=== PATIENT | male | born 1960 | race Caucasian/White ===

== ENCOUNTER 2017-09-01 16:16 | Emergency (ER) | payer OTHER ==
[2017-09-01] MEDS ORDERED: BABY ASPIRIN 81 MG CHEW PO ONE (17:26)
[2017-09-01] MEDS ORDERED: NITRO-BID 2% UD PACKETS TOP ONE (17:26)
[2017-09-01] MEDS ORDERED: PROVENTIL 2.5 MG/3 ML NEB IH ONE ×2 (17:27→17:39)
[2017-09-01 17:37] LABS: BASOPHIL % 0.3 % (0.0-0.4); Basophil (Absolute #) 0.02 (0-0.4); Eosinophil % 3.1 % (0.00-5.0); Eosinophil (Absolute #) 0.21 (0-0.5); Granulocyte Absolute (ANC) 4.06 (1.4-6.9); Granulocytes % 59.3 % (36.0-66.0); Hematocrit 37.9 % (42-50); Hemoglobin 12.5 gm/dl (12.5-18.0); Lymphocyte (Absolute #) 1.71 (1.0-4.6); Mean Cell Volume 90.5 fl (78-100); Mean Corpuscular Hemoglobin 29.8 pg (26-32); Monocyte (Absolute #) 0.84 (0.0-1.3); Monocytes % 12.3 % (0.0-12.0); Platelet Count 374 K/mm3 (150-450); Red Blood Count 4.19 M/mm3 (4.1-5.6); Red Cell Distribution Width 12.4 % (11.5-14.0); White Blood Count 6.8 K/mm3 (4.0-10.5)
[2017-09-01] MEDS ORDERED: BABY ASPIRIN 81 MG CHEW ONE (17:38)
[2017-09-01] MEDS ORDERED: NITRO-BID 2% UD PACKETS ONE (17:38)
[2017-09-01 17:45] LABS: ALKALINE PHOSPHATASE 97 U/L (38-126); ANION GAP 15.8 MEQ/L (5-15); BLOOD UREA NITROGEN 23 mg/dL (9-20); CHLORIDE 103 mmol/L (98-107); Calcium 9.4 mg/dL (8.4-10.2); Carbon Dioxide 24 mmol/L (22-30); Creatinine 1 0.76 mg/dL (0.66-1.25); Glucose 130 mg/dL (74-106); SGOT/AST 33 U/L (17-59); SGPT/ALT 35 U/L (0-50); SODIUM 139 mmol/L (137-145); Total Protein 9.1 g/dL (6.3-8.2)
--- NOTE | 2017-09-01 17:50 | ERPHSYRPT ---
- History of Present Illness Time Seen by Provider: 09/01/17 17:04 Source: patient, family () Patient Subjective Stated Complaint: Pt states "I have been short of breath and I came here to get some bloodwork and an ekg and they called me and told me I had an elevated D-Dimer, whatever that is, and I needed to get to the emergency room." Triage Nursing Assessment: Pt alert and oriented X 3, skin pwd. PT ambulates with and upright steady gait, able to speak in clear full sentences. Pt slightly tachypneic, no coughing. Physician History: CC: chest discomfort and shortness of breath HX: 56 y/o patient of Dr Rodriguez. He has had fatigue, chest discomfort, and shortness of breath for the past 1-2 weeks. Off and on. 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 He has no hx of heart disease. No hx of lung problems. He works at [employer] and quit smoking 8 yeas ago. Started with flu symptoms a few weeks ago. Was seen at [facility] and had sore throat, treated with ashok potion, steroid shots, and amoxil. He has had some lab tests and xrays in the past weeks. He had elevated d-dimer today so was sent to ER. Had EKG today. ALL: None MEds: Tramadol and flexeril Surg: Cataracts, plantar, vasectomy, skin, ortho Timing/Duration: week(s) (1-2) Severity: moderate Allergies/Adverse Reactions: No Known Drug Allergies Allergy (Unverified 09/01/17 16:36) Home Medications: Cyclobenzaprine HCl 10 mg [Cyclobenzaprine 10 MG] 10 mg PO DAILY 09/01/17 [History] Tramadol HCl 50 mg [Ultram 50 mg] 50 mg PO DAILY 09/01/17 [History] Hx Tetanus, Diphtheria Vaccination/Date Given: No Hx Influenza Vaccination/Date Given: No Hx Pneumococcal Vaccination/Date Given: No Immunizations Up to Date: Yes - Review of Systems Constitutional: Fever (?), Chills, Fatigue, Malaise, Weakness Eyes: No Symptoms Ears, Nose, & Throat: No Symptoms Respiratory: Dyspnea, No Cough, No Dyspnea on Exertion ([place]) Cardiac: Chest Pain, No Edema, No Palpitations, No Syncope Abdominal/Gastrointestinal: No Abdominal Pain, No Nausea, No Vomiting, No Diarrhea Genitourinary Symptoms: Dysuria (mild off and on) Musculoskeletal: No Back Pain Skin: No Rash Neurological: No Focal Weakness, No Headache, No Parasthesia All Other Systems: Reviewed and Negative - Past Medical History Pertinent Past Medical History: Yes Neurological History: Migraines ENT History: Cataracts Cardiac History: Other Respiratory History: No Pertinent History Endocrine Medical History: No Pertinent History Musculoskeletal History: Arthritis, Fibromyalgia GI Medical History: No Pertinent History History: No Pertinent History Psycho-Social History: Anxiety, Depression Male Reproductive Disorders: No Pertinent History 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 skin graft right hand. left arm, plate pin and screws. lasik - Social History Smoking Status: Former smoker Exposure to second hand smoke: No Drug Use: none Patient Lives Alone: No - Nursing Vital Signs Nursing Vital Signs: Initial Vital Signs Temperature 97.7 F 09/01/17 16:22 Pulse Rate 99 H 09/01/17 16:22 Respiratory Rate 20 09/01/17 16:22 Blood Pressure 175/92 09/01/17 16:22 O2 Sat by Pulse Oximetry 97 09/01/17 16:22 Pain Scale Pain Intensity 7 - Physical Exam General Appearance: alert, other (pleasant man who appears breathless at times) Eye Exam: PERRL/EOMI Ears, Nose, Throat Exam: normal ENT inspection, moist mucous membranes Neck Exam: normal inspection, non-tender, supple Respiratory Exam: normal breath sounds, No lungs clear Cardiovascular Exam: regular rate/rhythm, No murmur Gastrointestinal/Abdomen Exam: soft, No tenderness, No distention, No mass, No guarding Male Genitalia Exam: normal genitalia Back Exam: normal inspection Extremity Exam: normal range of motion, other (swelling under pleft wrist prior ortho site) Neurologic Exam: alert, oriented x 3, cooperative, 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 tested, sensation nml, No motor deficits Skin Exam: warm, dry, No rash SpO2: 96 Oxygen Delivery: Room Air - Course Nursing assessment & vital signs reviewed: Yes EKG Interpreted by Me: RATE (93), Sinus Rhythm, NORMAL AXIS, NORMAL INTERVALS ( QTc 438), NORMAL QRS, NORMAL ST-T - CT Exams CTA chest CT Interpretation: Tele-radiologist Report (no TAD, no PE) Ordered Tests: Active Orders 24 hr Category Date Time Status 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 Care 09/01/17 17:26 Active EKG-ER Only STAT Care 09/01/17 17:26 Active IV Insertion STAT Care 09/01/17 17:26 Active Pulse Oximetry (ED) STAT Care 09/01/17 17:26 Active CHEST WITH CONTRAST [CT] Stat Exams 09/01/17 17:26 Taken CBC W DIFF Stat Lab 09/01/17 17:26 Completed CMP Stat Lab 09/01/17 17:26 Completed NT PRO BNP Stat Lab 09/01/17 17:26 Completed TROPONIN Q3H Lab 09/01/17 17:30 Completed TROPONIN Q3H Lab 09/01/17 20:30 Ordered TROPONIN Q3H Lab 09/01/17 23:30 Ordered TROPONIN Q3H Lab 09/02/17 02:30 Ordered TROPONIN Q3H Lab 09/02/17 05:30 Ordered Respiratory Nebulizer STAT RT 09/01/17 17:27 Completed Medication Summary Discontinued Medications Generic Name Dose Route Start Last Admin Trade Name Freq PRN Reason Stop Dose Admin Albuterol Sulfate 2.5 mg 09/01/17 17:27 09/01/17 17:41 Proventil 2.5 Mg/3 Ml Neb IH 09/01/17 17:28 2.5 mg STAT ONE Administration Albuterol Sulfate Confirm 09/01/17 17:39 Proventil 2.5 Mg/3 Ml Neb Administered 09/01/17 17:40 Dose 2.5 mg IH .STK-MED ONE Aspirin 162 mg 09/01/17 17:26 09/01/17 17:47 Baby Aspirin 81 Mg Chew PO 09/01/17 17:27 162 mg STAT ONE Administration Aspirin Confirm 09/01/17 17:38 Baby Aspirin 81 Mg Chew Administered 09/01/17 17:39 Dose 162 mg .ROUTE .STK-MED ONE Nitroglycerin 1 gm 09/01/17 17:26 09/01/17 17:47 Nitro-Bid 2% Ud Packets TOP 09/01/17 17:27 1 gm STAT ONE Administration Nitroglycerin Confirm 09/01/17 17:38 Nitro-Bid 2% Ud Packets Administered 09/01/17 17:39 Dose 1 gm .ROUTE .STK-MED ONE Lab/Rad Data: Laboratory Result Diagrams 09/01/17 17:26 09/01/17 17:26 Laboratory Results 09/01/17 09/01/17 09/01/17 Range/Units 17:30 17:26 17:26 WBC 6.8 (4.0-10.5) K/mm3 RBC 4.19 (4.1-5.6) M/mm3 Hgb 12.5 (12.5-18.0) gm/dl Hct 37.9 L (42-50) % MCV 90.5 (78-100) fl MCH 29.8 (26-32) pg MCHC 33.0 (32-36) g/dl RDW 12.4 (11.5-14.0) % Plt Count 374 (150-450) K/mm3 MPV 9.0 (6-9.5) fl Gran % 59.3 (36.0-66.0) % Lymphocytes % 25.0 (24.0-44.0) % Monocytes % 12.3 H (0.0-12.0) % Eosinophils % 3.1 (0.00-5.0) % Basophils % 0.3 (0.0-0.4) % Basophils # 0.02 (0-0.4) Sodium 139 (137-145) mmol/L Potassium 4.0 (3.5-5.1) mmol/L Chloride 103 (98-107) mmol/L Carbon Dioxide 24 (22-30) mmol/L Anion Gap 15.8 H (5-15) MEQ/L BUN 23 H (9-20) mg/dL Creatinine 0.76 (0.66-1.25) mg/dL Estimated GFR > 60 ML/MIN Glucose 130 H (74-106) mg/dL Calcium 9.4 (8.4-10.2) mg/dL Total Bilirubin 0.30 (0.2-1.3) mg/dL AST 33 (17-59) U/L ALT 35 (0-50) U/L Alkaline Phosphatase 97 (38-126) U/L Troponin I < 0.012 (0.000-0.034) ng/mL NT-Pro-B Natriuret Pep 51.5 (0-900) pg/mL Serum Total Protein 9.1 H (6.3-8.2) g/dL Albumin 4.0 (3.5-5.0) g/dL - Progress Progress Note: 09/01/17 19:57 Pain better at this point. HE has NTG paste in place. Was resting. He had mild EKG changes on EKG earlier today. Advised he have rule out [place] observation and cardiology consult. No cardiology available here over weekend. will call [facility] and decide [facility] or [facility]. 09/01/17 20:11 called [facility] and chose [facility]. CAlled [facility] transfer center and spoke to Dr Gee in ED accepts pt in transfer. Counseled pt/family regarding: lab results, diagnosis, need for follow-up, rad results - Departure Time of Disposition: 20:11 Departure Disposition: Transfer Clinical Impression: chest pain rule out angina Condition: Fair Critical Care Time: No Referrals: GABRIELLA RODRIGUEZ [Primary Care Provider] -
[2017-09-01 17:54] LABS: NT PRO BNP 51.5 pg/mL (0-900)
[2017-09-01 20:52] VITALS: O2SAT 97
[2017-09-01 20:55] VITALS: PULSE 88
[2017-09-01 21:12] VITALS: BP 130/91
--- NOTE | 2017-09-02 07:24 | XRAY ---
Indication: Short of breath and fatigue. Elevated d-dimer. Multiple contiguous axial images obtained through the chest using 80 cc of Isovue 370 contrast and PE protocol. Comparison: None There is satisfactory opacification of the pulmonary arteries to include the lobar and segmental branches. No filling defect or pulmonary embolus. Heart is not enlarged. Aorta is normal in course and caliber. Left hilar calcified node. No pathologic mediastinal/hilar adenopathy. Examination of the lung parenchyma demonstrates minimal bilateral dependent atelectasis. No suspicious pulmonary mass, infiltrate, or effusion. Bony thorax intact with minimal degenerative changes throughout the spine. Limited upper abdomen including adrenal glands unremarkable. Impression: Negative pulmonary embolus. No acute cardiopulmonary abnormalities. Comment: Preliminary interpretation was made by [facility]. No discrepancy. CTDI 23.69
== END 2017-09-01 21:14 | disposition short-term general hospital (02) ==
LOC: ED 16:16
DX: R07.89 Other chest pain (principal); R06.02 Shortness of breath; R53.83 Other fatigue
CPT/HCPCS: 36000; 36415; 71260; 80053; 83880; 84484; 85025; 85379; 85652; 86140; 93005; 93041; 94150; 94640; 99284; 99285; A9270-GY

== ENCOUNTER 2017-10-11 20:55 | Emergency (ER) | payer OTHER ==
[2017-10-11] MEDS ORDERED: solu-MEDROL 125 MG IM ONE (22:01)
[2017-10-11] MEDS ORDERED: TORAdol 30 mg Injection IM ONE (22:02)
[2017-10-11] MEDS ORDERED: solu-MEDROL 125 MG ONE (22:04)
[2017-10-11] MEDS ORDERED: TORAdol 30 mg Injection ONE (22:04)
[2017-10-11 22:10] VITALS: BP 148/78; PULSE 84; O2SAT 97
--- NOTE | 2017-10-11 22:17 | ERPHSYRPT ---
- History of Present Illness Time Seen by Provider: 10/11/17 22:11 Source: patient Exam Limitations: no limitations Patient Subjective Stated Complaint: Right Sided Back Pain Triage Nursing Assessment: Pt presents to the ED with complaints of right sided back pain. Pt states onset of pain was Monday when he was lifting a heavy object. Pt states pain improved, but then worsened today. Pt states pain is worse with movement. Tramadol at home is not helping. No distress noted, skin PWD. Physician History: patient with history of chronic back pain, presents with right sided lower back pain that began 4 days ago. Patient states he lifted a table and felt a twinge to his right back area. Patient states pain was achy with sharp exacerbation and spasm. Pain did radiate down his right leg to the knee area. Patient took tramadol that did seem to improve his pain. Patient had been working the last 2 days and walking at least a mile on the job. Patient states right sided back pain acted up again when he tried to lift a heavy object earlier today. Patient denies any chest pain, shortness of breath, palpitation, dizziness, diaphoresis, no bowel/urinary incontinence and no weakness distally Timing/Duration: day(s) (4), intermittent, gradual onset, worse Method of Injury: bending, lifting, prior injury Quality: sharp, aching Back Pain Location: lumbar spine Back Pain Radiation: upper legs Severity of Pain-Max: moderate Severity of Pain-Current: moderate Modifying Factors: Improves With: immobilization (improves), movement (worsens) Associated Symptoms: lower back pain, muscle spasms, No urinary incontinence, No loss of bowel control, No constipation, No nausea, No vomiting, No problems urinating, No dizziness, No numbness in legs/feet, No weakness, No sensory/ motor loss, No tingling in legs/feet Previous symptoms: same symptoms as today Allergies/Adverse Reactions: No Known Drug Allergies Allergy (Unverified 09/01/17 16:36) Home Medications: Cyclobenzaprine HCl 10 mg [Cyclobenzaprine 10 MG] 10 mg PO DAILY 09/01/17 [History] Tramadol HCl 50 mg [Ultram 50 mg] 50 mg PO DAILY 09/01/17 [History] Amlodipine Besylate [Amlodipine Besylate] 5 mg PO DAILY 10/11/17 [History] Mupirocin [Bactroban OINTMENT] 1 inch TOP BID 10/11/17 [History] Hx Tetanus, Diphtheria Vaccination/Date Given: No Hx Influenza Vaccination/Date Given: No Hx Pneumococcal Vaccination/Date Given: No Immunizations Up to Date: No - Review of Systems Constitutional: No Fever, No Chills Eyes: No Symptoms Ears, Nose, & Throat: No Symptoms Respiratory: No Cough, No Dyspnea Cardiac: No Symptoms, No Chest Pain, No Edema, No Syncope Abdominal/Gastrointestinal: No Symptoms, No Abdominal Pain, No Nausea, No Vomiting, No Diarrhea Genitourinary Symptoms: No Symptoms, No Dysuria Musculoskeletal: Back Pain, No Neck Pain Skin: No Symptoms, No Rash Neurological: No Symptoms, No Dizziness, No Focal Weakness, No Sensory Changes Psychological: No Symptoms Endocrine: No Symptoms All Other Systems: Reviewed and Negative - Past Medical History Pertinent Past Medical History: Yes Neurological History: Migraines ENT History: Cataracts Cardiac History: Other Respiratory History: No Pertinent History Endocrine Medical History: No Pertinent History Musculoskeletal History: Arthritis, Fibromyalgia GI Medical History: No Pertinent History History: No Pertinent History Psycho-Social History: Anxiety, Depression Male Reproductive Disorders: No Pertinent History 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 skin graft right hand. left arm, plate pin and screws. lasik - Social History Smoking Status: Former smoker Exposure to second hand smoke: Yes Drug Use: none Patient Lives Alone: No - Nursing Vital Signs Nursing Vital Signs: Initial Vital Signs Temperature 98.9 F 10/11/17 20:59 Pulse Rate 97 H 10/11/17 20:59 Respiratory Rate 16 10/11/17 20:59 Blood Pressure 176/101 10/11/17 20:59 O2 Sat by Pulse Oximetry 99 10/11/17 20:59 Pain Scale Pain Intensity [Back] 10 Pain Intensity 10 - Physical Exam General Appearance: no apparent distress, alert Eye Exam: PERRL/EOMI, eyes nml inspection Neck Exam: normal inspection, non-tender, supple, full range of motion, No meningismus, No midline tenderness Respiratory Exam: normal breath sounds, lungs clear, No respiratory distress Cardiovascular Exam: regular rate/rhythm, normal heart sounds Gastrointestinal Exam: soft, No tenderness, No mass Rectal Exam: deferred Back Exam: normal inspection, decreased range of motion, point tenderness ( there is tenderness to right paralumbar area with muscle spasms noted) Extremity Exam: normal inspection, normal range of motion, No calf tenderness, No pedal edema Peripheral Pulses: dorsalis-pedis (R): 2+, dorsalis-pedis (L): 2+ Neurologic Exam: alert, oriented x 3, cooperative, 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/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 tested, normal mood/affect, nml station & gait, sensation nml, No motor deficits Skin Exam: normal color, warm, dry, No rash SpO2: 97 Oxygen Delivery: Room Air - Course Nursing assessment & vital signs reviewed: Yes Ordered Tests: Medication Summary Discontinued Medications Generic Name Dose Route Start Last Admin Trade Name Anshulq PRN Reason Stop Dose Admin Ketorolac Tromethamine 60 mg 10/11/17 22:02 10/11/17 22:06 Toradol 30 Mg Injection IM 10/11/17 22:03 60 mg STAT ONE Administration Ketorolac Tromethamine Confirm 10/11/17 22:04 Toradol 30 Mg Injection Administered 10/11/17 22:05 Dose 60 mg .ROUTE .STK-MED ONE Methylprednisolone Sodium Succinate 125 mg 10/11/17 22:01 10/11/17 22:06 Solu-Medrol 125 Mg IM 10/11/17 22:02 125 mg STAT ONE Administration Methylprednisolone Sodium Succinate Confirm 10/11/17 22:04 Solu-Medrol 125 Mg Administered 10/11/17 22:05 Dose 125 mg .ROUTE .STK-MED ONE - Progress Progress: improved Progress Note: 10/11/17 22:16 patient was given Solu-Medrol/Toradol. Patient instructed to continue his tramadol/Flexeril, along with Solu-Medrol Dosepak for outpatient therapy Counseled pt/family regarding: diagnosis - Departure Time of Disposition: 22:17 Departure Disposition: Home Clinical Impression: Low back pain Condition: Stable Critical Care Time: No Referrals: GABRIELLA LORENZO [Primary Care Provider] - Instructions: Low Back Pain (DC) Additional Instructions: ffollow-up with your doctor in 1-2 days. Return for worse back pain, numbness, tingling, weakness or any problems Prescriptions: Methylprednisolone Packet [Medrol Dosepack] 4 mg PO UD #30 packet
== END 2017-10-11 22:30 | disposition home or self-care (01) ==
LOC: ED 20:55
DX: M54.5 Low back pain (principal); Z79.899 Other long term (current) drug therapy
CPT/HCPCS: 96372; 99283; 99284; J1885; J2930

== ENCOUNTER 2017-10-26 15:45 | Emergency (ER) | payer OTHER ==
[2017-10-26] MEDS ORDERED: Sodium Chloride 0.9% 1000 ML 1,000 ML IV STA (16:17)
[2017-10-26] MEDS ORDERED: TORAdol 30 mg Injection IV ONE (16:17)
[2017-10-26] MEDS ORDERED: TORAdol 30 mg Injection ONE (16:24)
[2017-10-26] MEDS ORDERED: Sodium Chloride 0.9% 1000 ML 1,000 ML ONE (16:24)
--- NOTE | 2017-10-26 16:37 | ERPHSYRPT ---
- History of Present Illness Time Seen by Provider: 10/26/17 16:07 Source: patient Exam Limitations: no limitations Patient Subjective Stated Complaint: Right Flank Pain beginning yesterday and continuing today. Triage Nursing Assessment: Pt presents to the ED with complaints of right flank pain beginning yesterday. Pt states hx of pancreatitis. Pt states "this feels just like my pancreatitis." No distress noted, skin PWD. Physician History: 57-year-old white male with history of migraines, cataracts, arthritis, fibromyalgia, anxiety, depression, chronic back pain who states she has had pancreatitis in the past he arrives with complaint of pain in the right low flank radiating to his right lower abdomen symptoms for 3 days he denies any vomiting no diarrhea no melena no hematochezia. Past medical history includes migraines, chronic back pain, cataracts, arthritis , fibromyalgia, anxiety, depression, heart murmur, ulcers, pancreatitis Past surgical history includes mastectomy, bilateral feet surgery, skin graft right hand, left hand ORIF Timing/Duration: day(s) (33 days) Modifying Factors: Improves With: nothing Associated Symptoms: abdominal pain, other (right flank pain), No nausea, No vomiting, No shortness of breath, No heartburn, No diaphoresis, No cough, No chills, No chest pain, No fever, No headaches, No loss of appetite, No malaise, No rash, No syncope, No seizure, No weakness Allergies/Adverse Reactions: No Known Drug Allergies Allergy (Unverified 09/01/17 16:36) Home Medications: Cyclobenzaprine HCl 10 mg [Cyclobenzaprine 10 MG] 10 mg PO DAILY 09/01/17 [History] Amlodipine Besylate [Amlodipine Besylate] 10 mg PO DAILY 10/26/17 [History] Omeprazole [Omeprazole] 40 mg PO BID 10/26/17 [History] Tramadol HCl 50 mg [Ultram 50 mg] 50 mg PO Q6HPRN PRN 10/26/17 [History] Hx Tetanus, Diphtheria Vaccination/Date Given: No Hx Influenza Vaccination/Date Given: No Hx Pneumococcal Vaccination/Date Given: No Immunizations Up to Date: No - Review of Systems Constitutional: No Fever, No Chills Eyes: No Symptoms Ears, Nose, & Throat: No Symptoms Respiratory: No Cough, No Dyspnea Cardiac: No Chest Pain, No Edema, No Syncope Abdominal/Gastrointestinal: Abdominal Pain, No Nausea, No Vomiting, No Diarrhea , No Constipation, No Hematemesis, No Hematochezia, No Melena, No Dysphagia, No Appetite Changes Genitourinary Symptoms: Flank Pain (right flank pain), No Dysuria, No Frequency , No Hematuria, No Hesitancy, No Incontinence, No Urgency, No Urinary Retention , No Testicle Pain, No Penile Discharge Musculoskeletal: Back Pain, No Neck Pain Skin: No Rash Neurological: No Dizziness, No Focal Weakness, No Sensory Changes Psychological: No Symptoms Endocrine: No Symptoms All Other Systems: Reviewed and Negative - Past Medical History Pertinent Past Medical History: Yes Neurological History: Migraines ENT History: Cataracts Cardiac History: Other Respiratory History: No Pertinent History Endocrine Medical History: No Pertinent History Musculoskeletal History: Arthritis, Fibromyalgia GI Medical History: No Pertinent History History: No Pertinent History Psycho-Social History: Anxiety, Depression Male Reproductive Disorders: No Pertinent History 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 skin graft right hand. left arm, plate pin and screws. lasik - Social History Smoking Status: Former smoker Exposure to second hand smoke: No Drug Use: none Patient Lives Alone: No - Nursing Vital Signs Nursing Vital Signs: Initial Vital Signs Temperature 97.6 F 10/26/17 15:51 Pulse Rate 89 10/26/17 15:51 Respiratory Rate 16 10/26/17 15:51 Blood Pressure 148/89 10/26/17 15:51 O2 Sat by Pulse Oximetry 99 10/26/17 15:51 Pain Scale Pain Intensity 4 - Physical Exam General Appearance: no apparent distress, alert Eye Exam: PERRL/EOMI, eyes nml inspection Ears, Nose, Throat Exam: normal ENT inspection, TMs normal, pharynx normal, moist mucous membranes Neck Exam: normal inspection, non-tender, supple, full range of motion Respiratory Exam: normal breath sounds, lungs clear, No respiratory distress Cardiovascular Exam: regular rate/rhythm, normal heart sounds, normal peripheral pulses Gastrointestinal/Abdomen Exam: soft, normal bowel sounds, tenderness (right middle and right lower quadrant tenderness), No mass Back Exam: normal range of motion, CVA tenderness (right flank tenderness), No vertebral tenderness Extremity Exam: normal inspection, normal range of motion, pelvis stable Neurologic Exam: alert, oriented x 3, cooperative, normal mood/affect, nml cerebellar function, nml station & gait, sensation nml, No motor deficits Skin Exam: normal color, warm, dry, No rash Lymphatic Exam: No inguinal node tender (L) SpO2 Interpretation: normal (99%) SpO2: 99 Oxygen Delivery: Room Air - Course Nursing assessment & vital signs reviewed: Yes - CT Exams Abdomen/Pelvis CT Interpretation: Discussed w/radiologist (CT abdomen and pelvis without contrast: nno comparisons, contracted gall bladder without stones, non obstructing punctate right renal stone, small fally umbilical hernia, normal appendix, Remaining abdomen/ pelvis negayive) Ordered Tests: Active Orders 24 hr Category Date Time Status IV Insertion STAT Care 10/26/17 16:17 Active ABDOMEN AND PELVIS W/0 CONTRAS [CT] Stat Exams 10/26/17 17:30 Taken AMYLASE Stat Lab 10/26/17 16:42 Completed CBC W DIFF Stat Lab 10/26/17 16:42 Completed CMP Stat Lab 10/26/17 16:42 Completed LIPASE Stat Lab 10/26/17 16:42 Completed UA W/RFX UR CULTURE DAILY Lab 10/26/17 17:55 Completed Medication Summary Discontinued Medications Generic Name Dose Route Start Last Admin Trade Name Freq PRN Reason Stop Dose Admin Sodium Chloride 1,000 mls @ 999 mls/hr 10/26/17 16:17 10/26/17 16:27 Sodium Chloride 0.9% 1000 Ml IV 10/26/17 17:17 999 mls/hr .Q1H1M STA Administration Sodium Chloride Confirm 10/26/17 16:24 Sodium Chloride 0.9% 1000 Ml Administered 10/26/17 16:25 Dose 1,000 mls @ ud .ROUTE .STK-MED ONE Ketorolac Tromethamine 30 mg 10/26/17 16:17 10/26/17 16:27 Toradol 30 Mg Injection IV 10/26/17 16:18 30 mg STAT ONE Administration Ketorolac Tromethamine Confirm 10/26/17 16:24 Toradol 30 Mg Injection Administered 10/26/17 16:25 Dose 30 mg .ROUTE .STK-[facility] ONE Lab/Rad Data: Laboratory Result Diagrams 10/26/17 16:42 10/26/17 16:42 Laboratory Results 10/26/17 10/26/17 10/26/17 Range/Units 17:55 16:42 16:42 WBC 5.2 (4.0-10.5) K/mm3 RBC 4.57 (4.1-5.6) M/mm3 Hgb 13.5 (12.5-18.0) gm/dl Hct 40.1 L (42-50) % MCV 87.7 (78-100) fl MCH 29.5 (26-32) pg MCHC 33.7 (32-36) g/dl RDW 13.9 (11.5-14.0) % Plt Count 226 (150-450) K/mm3 MPV 9.3 (6-9.5) fl Gran % 51.5 (36.0-66.0) % Eos # (Auto) 0.09 (0-0.5) Absolute Lymphs (auto) 1.68 (1.0-4.6) Absolute Monos (auto) 0.74 (0.0-1.3) Lymphocytes % 32.1 (24.0-44.0) % Monocytes % 14.1 H (0.0-12.0) % Eosinophils % 1.7 (0.00-5.0) % Basophils % 0.6 (0.0-0.4) % Absolute Granulocytes 2.70 (1.4-6.9) Basophils # 0.03 (0-0.4) Sodium 137 (137-145) mmol/L Potassium 3.4 L (3.5-5.1) mmol/L Chloride 104 (98-107) mmol/L Carbon Dioxide 22 (22-30) mmol/L Anion Gap 14.9 (5-15) MEQ/L BUN 20 (9-20) mg/dL Creatinine 0.72 (0.66-1.25) mg/dL Estimated GFR > 60.0 ML/MIN Glucose 115 H (74-106) mg/dL Calcium 8.6 (8.4-10.2) mg/dL Total Bilirubin 0.70 (0.2-1.3) mg/dL AST 25 (17-59) U/L ALT 21 (0-50) U/L Alkaline Phosphatase 78 (38-126) U/L Serum Total Protein 7.2 (6.3-8.2) g/dL Albumin 4.1 (3.5-5.0) g/dL Amylase 44 (30-110) U/L Lipase 43 (23-300) U/L Ur Collection Type VOID Urine Color YELLOW (YELLOW) Urine Appearance CLEAR (CLEAR) Urine pH 5.0 (5-6) Ur Specific [place] 1.025 (1.005-1.025) Urine Protein NEGATIVE (Negative) Urine Ketones NEGATIVE (NEGATIVE) Urine Blood NEGATIVE (0-5) Yohannes/ul Urine Nitrite NEGATIVE (NEGATIVE) Urine Bilirubin NEGATIVE (NEGATIVE) Urine Urobilinogen NORMAL (0-1) mg/dL Ur Leukocyte Esterase NEGATIVE (NEGATIVE) Urine Culture Reflexed NO (NO) Urine Glucose 50 (NEGATIVE) mg/dL Specimen Received 10/26/17 1745 - Progress Progress: improved Progress Note: 10/26/17 18:49 This is a 57-year-old white male with history of chronic back pain, migraines, cataracts, arthritis, fibromyalgia He arrives with complaint of a pain in his of right lower quadrant radiating to his right flank 3 days she also states he occasionally has pressure in his epigastric region. Patient denies vomiting patient has taken tramadol in the past for his back pain he is not on this at this time. Patient is on physical examination has tenderness in the right lower quadrant right flank. Vitals for this patient are stable Patient's CBC is within normal limits with a white count of 5.2 hemoglobin 13.5 hematocrit 40.1 platelets of 226 patient's chemistry is essentially normal patient with a sodium of 137 potassium 3.4 chloride 104 bicarbonate 22 BUN 20 creatinine 0.72 glucose 1:15 patient's urinalysis is essentially normal with the exception of a small amount of glucose in his urine Patient's CT remarkable for a contracted gallbladder without stones. Nonobstructing punctate right renal stone. Small fatty umbilical hernia. Normal appendix. Remaining abdomen and pelvis are within normal limits. Patient is feeling better after IV normal saline 1 L and Toradol 30 mg IV. Will plan to discharge the patient with a prescription for [place] 5/325 #15 one orally every 4-6 hours as needed for pain. Patient is to take clear fluids 24-48 hours if abdominal pain. He is to follow-up with his family doctor or the physician on-call for his family doctor if his symptoms are worse, no better in 24-48 hours, or persist longer than 72 hours. . He is to return for acute distress or for severe symptoms. - Departure Time of Disposition: 18:53 Departure Disposition: Home Clinical Impression: Right lower quadrant abdominal pain, Right flank pain Condition: Fair Critical Care Time: No Referrals: GABRIELLA LORENZO [Primary Care Provider] - Instructions: Flank Pain Additional Instructions: Return home. Plenty of fluids. Clear fluids only 24-48 hours if abdominal pain. Follow-up with your family Dr. symptoms are worse, no better in 48 hours, or persist longer than 72 hours. [place] as prescribed. Return for acute distress or for severe symptoms. Prescriptions: Hydrocodone/Acetaminophen [[place] 5-325 Tablet] 1 tab PO Q4-6HPRN PRN #15 tablet MDD 6 tablets PRN Reason: Pain
[2017-10-26 16:44] LABS: BASOPHIL % 0.6 % (0.0-0.4); Basophil (Absolute #) 0.03 (0-0.4); Eosinophil % 1.7 % (0.00-5.0); Eosinophil (Absolute #) 0.09 (0-0.5); Granulocytes % 51.5 % (36.0-66.0); Hematocrit 40.1 % (42-50); Hemoglobin 13.5 gm/dl (12.5-18.0); Lymphocyte (Absolute #) 1.68 (1.0-4.6); Lymphocytes % 32.1 % (24.0-44.0); Mean Cell Volume 87.7 fl (78-100); Mean Corpuscular Hemoglobin 29.5 pg (26-32); Mean Corpuscular Hgb Concent. 33.7 g/dl (32-36); Mean Platelet Volume 9.3 fl (6-9.5); Monocyte (Absolute #) 0.74 (0.0-1.3); Monocytes % 14.1 % (0.0-12.0); Platelet Count 226 K/mm3 (150-450); Red Blood Count 4.57 M/mm3 (4.1-5.6); Red Cell Distribution Width 13.9 % (11.5-14.0); White Blood Count 5.2 K/mm3 (4.0-10.5)
[2017-10-26 17:06] LABS: ALBUMIN 4.1 g/dL (3.5-5.0); ALKALINE PHOSPHATASE 78 U/L (38-126); AMYLASE 44 U/L (30-110); ANION GAP 14.9 MEQ/L (5-15); BLOOD UREA NITROGEN 20 mg/dL (9-20); CHLORIDE 104 mmol/L (98-107); Calcium 8.6 mg/dL (8.4-10.2); Carbon Dioxide 22 mmol/L (22-30); Creatinine 1 0.72 mg/dL (0.66-1.25); Glucose 115 mg/dL (74-106); LIPASE 43 U/L (23-300); Potassium 3.4 mmol/L (3.5-5.1); SGOT/AST 25 U/L (17-59); SGPT/ALT 21 U/L (0-50); SODIUM 137 mmol/L (137-145); Total Protein 7.2 g/dL (6.3-8.2)
[2017-10-26 17:58] LABS: Appearance CLEAR (CLEAR); Bilirubin NEGATIVE (NEGATIVE); Blood NEGATIVE Ery/ul (0-5); Glucose 50 mg/dL (NEGATIVE); Ketones NEGATIVE (NEGATIVE); Leukocyte Esterase NEGATIVE (NEGATIVE); Nitrite NEGATIVE (NEGATIVE); Protein,Urine Dip NEGATIVE (Negative); Specific Gravity 1.025 (1.005-1.025); Urobilinogen NORMAL mg/dL (0-1)
[2017-10-26 19:06] VITALS: BP 140/86; PULSE 75; O2SAT 98
--- NOTE | 2017-10-27 08:42 | XRAY ---
Indication: Abdominal/right flank pain 3 days. History of pancreatitis. Multiple contiguous axial images obtained through the abdomen and pelvis without contrast as ordered. Comparison: None Lung bases demonstrates minimal bibasilar dependent atelectasis. No infiltrate or effusion. Heart is not enlarged. Noncontrasted stomach and bowel loops appear nonobstructed. Normal appendix. Gallbladder contracted without gallstones. Nonobstructing punctate right renal calculus. Remaining liver, pancreas, spleen, adrenal glands, kidneys, ureters, bladder, and aorta appear unremarkable for noncontrast exam. Osseous structures intact with mild degenerative changes throughout the spine, greatest at the lumbosacral junction. Small fatty umbilical hernia. Impression: 1. Nonobstructing right renal micro-calculus and small fatty umbilical hernia. 2. No acute intra-abdominal/pelvic abnormalities on this noncontrast exam. CT DI 23.62
== END 2017-10-26 19:06 | disposition home or self-care (01) ==
LOC: ED 15:45
DX: R10.31 Right lower quadrant pain (principal); R10.9 Unspecified abdominal pain; Z79.899 Other long term (current) drug therapy
CPT/HCPCS: 36000; 36415; 74176; 80053; 81002; 82150; 83690; 85025; 96360; 96374; 99284; J1885